=== PATIENT | male | born 1945 | race Caucasian/White ===

== ENCOUNTER 2019-01-22 14:52 | Inpatient (IN) | payer OTHER ==
[~2019-01-22 14:52] MED LIST: LANTUS SOLOSTAR3 ML
[2019-02-17] MEDS ORDERED: XARELTO20 MG PO (13:04)
[2019-02-17] MEDS ORDERED: PROPAFENONE HC225 M1 PO (13:05)
[2019-02-17] MEDS ORDERED: HUMULIN N100 UNIT/2 (13:05)
[2019-04-24] MEDS ORDERED: PERCOCET 5-3251 EACH PO (16:19)
[2019-04-24] MEDS ORDERED: INTESTINEX680 M1 PO (16:19)
[2019-04-24] MEDS ORDERED: OMEPRAZOLE MAGN20 MG PO (16:19)
== END 2019-04-24 17:58 | disposition home or self-care (01) | DRG 331 ==
LOC: SURG 02-24 11:00 → SURH 04-22 05:30 → O/R 04-22 05:30 → SURG 04-22 11:00 → SURH 04-22 20:05
PROVIDERS: ADMIT Colon & Rectal Surgery
PROC: 07BB4ZX Excision of Mesenteric Lymphatic, Percutaneous Endoscopic Approach, Diagnostic (ICD-10-PCS; 2019-04-22)
PROC: 0DBU4ZZ Excision of Omentum, Percutaneous Endoscopic Approach (ICD-10-PCS; 2019-04-22)
PROC: 0DTF4ZZ Resection of Right Large Intestine, Percutaneous Endoscopic Approach (ICD-10-PCS; principal; 2019-04-22 14:30)
DX: D12.0 Benign neoplasm of cecum (principal); R59.0 Localized enlarged lymph nodes; K66.0 Peritoneal adhesions (postprocedural) (postinfection); I10 Essential (primary) hypertension; K63.89 Other specified diseases of intestine